=== PATIENT | male | born 1995 | race Caucasian/White ===

== ENCOUNTER 2016-11-10 01:47 | Emergency (ER) | payer MEDICAID ==
[~2016-11-10] VITALS: Ht 185.4 cm; Wt 81.0 kg
[~2016-11-10 01:47] MED LIST: CEPH-443 PO; HYDR-762 PO
[2016-11-10 01:53] VITALS: Ht 185.4 cm; Wt 81.0 kg
[2016-11-10] MEDS ORDERED: DIPHTH/TET/ACEL PERTUSS (ADULT) 0.5 ML VIAL IM* ONE (04:30)
[2016-11-10] MEDS ORDERED: HYDR-905 PO (04:36)
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
== END 2016-11-10 05:05 | disposition home or self-care (01) ==
LOC: FTE 01:47
DX: S81.802A Unspecified open wound, left lower leg, initial encounter (principal); W22.8XXA Striking against or struck by other objects, initial encounter; Y92.9 Unspecified place or not applicable
CPT/HCPCS: 99283